=== PATIENT | female | born 2000 | race Caucasian/White ===

== ENCOUNTER 2019-03-23 07:25 | Outpatient (CLI) | payer OTHER ==
[2019-03-23 12:23] LABS: BHCG - Serum Negative (NEGATIVE); Pregs Control Background? CLEAR/WHITE (CLR/WHITE); Pregs Control Bar Appear? YES (CONTROL BAR)
== END 2019-03-23 07:26 | disposition home or self-care (01) ==
LOC: LABBT 07:25
PROVIDERS: ATTEND Orthopaedic Surgery
DX: Z01.812 Encounter for preprocedural laboratory examination (principal); S83.241A Other tear of medial meniscus, current injury, right knee, initial encounter
CPT/HCPCS: 84703

== ENCOUNTER 2019-03-28 07:09 | Day surgery (SDC) | payer OTHER ==
[2019-03-23 11:32] VITALS: BMI 20.6
--- NOTE | 2019-03-27 10:07 | HP ---
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 She has had persistent medial knee pain and sensation of catching despite rest, restriction activities and exercises in knee brace and anti-inflammatory medications. Pain is now worse with driving and prolonged ambulation is interfering with day-to-day activities. PAST MEDICAL HISTORY: The patient is otherwise in good health. She has used ibuprofen for current symptoms. She is otherwise in good health. There are no major medical problems. ALLERGIES: SHE HAS NO KNOWN ALLERGIES. FAMILY HISTORY: Otherwise unremarkable. SOCIAL HISTORY: Otherwise unremarkable. REVIEW OF SYSTEMS: Otherwise unremarkable. PHYSICAL EXAMINATION: GENERAL: Reveals a healthy female. There is mild generalized ligamentous laxity. HEENT: Unremarkable. NECK: Supple. CHEST: Clear. HEART: Regular rate and rhythm. ABDOMEN: Soft and nontender. PELVIC: Deferred. RECTAL: Deferred. BREASTS: Deferred. EXTREMITIES: Pertinent findings with the right knee. There is no swelling or effusion. There is normal alignment. Q-angle is 15 degrees bilaterally. There is some pain with patellar compression. There is tenderness along the medial joint line and pain with Georgiana's maneuver. Full range of motion. There is no definite instability. There is a very slight positive patellar apprehension sign. NEUROVASCULAR: Intact. Gait is normal. DIAGNOSTIC STUDIES: X-rays of the right knee are negative except for borderline patella carmella. MRI scan of the right knee reveals a possible small flap tear involving the anterior medial meniscus. IMPRESSION: Internal derangement of right knee, possible medial meniscal tear. PLAN: Arthroscopy of right knee with possible partial medial meniscectomy and/or debridement and shaving. The nature of the surgery, length of recovery, and potential complications such as infection, loss of motion, incomplete relief, neurovascular injury, thromboembolic phenomena, posttraumatic degenerative arthritis, recurrent tear, need for additional treatment, repeat surgery have been discussed in detail with the patient and her father. Job ID: [id number]
[2019-03-28] MEDS ORDERED: Bupivacaine HCl 0.5%/Epinephrine 1:200,000/PF 30 ml Vial ONE (08:19)
[2019-03-28] MEDS ORDERED: Fentanyl 100 MCG/2 ML VIAL ONE (08:22)
[2019-03-28] MEDS ORDERED: HYDROcodone/Acetaminophen 5/325 mg Tablet ONE (11:46)
[2019-03-28] MEDS ORDERED: Ondansetron PF 4 MG/2 ML Vial ONE (12:34)
[2019-03-28] MEDS ORDERED: Ketorolac Tromethamine 30 MG/ML VIAL ONE (12:34)
[2019-03-28] MEDS ORDERED: Dexamethasone 20 MG/5 ML VIAL ONE (12:34)
[2019-03-28] MEDS ORDERED: PROPOFOL 200 MG/20 ML VIAL ONE (12:34)
[2019-03-28] MEDS ORDERED: Lidocaine 1% PF 5 ML VIAL ONE (12:34)
--- NOTE | 2019-03-28 17:58 | OP ---
DATE OF PROCEDURE: 03/28/2019 ANESTHESIA: General. PREOPERATIVE DIAGNOSIS: Medial meniscal tear, right knee. POSTOPERATIVE DIAGNOSES: 1. Medial meniscal tear, right knee. 2. Small chondral defect of patella. PROCEDURES PERFORMED: Arthroscopy of right knee with partial medial meniscectomy and shaving of patella. OPERATIVE FINDINGS: Examination under anesthesia revealed the knee to be stable. On arthroscopy, there was a small possibly 5 x 5 mm partial thickness chondral defect on the central aspect of the patella, which appeared to be probably post-traumatic. There was good patellar tracking. There was a very small flap tear of the anterior horn of the medial meniscus and a very small flap tear of the posterior horn at the very root of the meniscus. The bulk of the meniscus was intact. The articular surface was intact. ACL was intact. Lateral compartment and lateral meniscus were normal. DESCRIPTION OF PROCEDURE: After satisfactory anesthesia was induced in the supine position, the patient was placed in a leg taylor, prepped and draped in routine manner. The right leg was elevated and exsanguinated with an Esmarch bandage and the tourniquet inflated to 250 mmHg. Bhavesh arthroscope was introduced through an anterolateral portal, probed through the anteromedial portal. Inflow and outflow accomplished through the scope using a Shippter arthroscopy pump. Arthroscopy was carried out and the above findings were noted. All findings were documented with video printer and hard copies were made. The anterior horn of the medial meniscus was shaved with a motorized shaver and the small flap tear posteriorly was also debrided with the basket forceps and motorized shaver. The small patellar chondral defect was smoothed with motorized shaver. The scope was then introduced in the anteromedial compartment and all compartments visualized. No additional pathology found. The knee was then copiously irrigated with the scope and all instruments were then withdrawn. A 20 mL of 0.5% Marcaine with epinephrine was instilled into the knee joint, additional 10 mL injected about the portal sites. Portal sites were closed with 3-0 nylon and a sterile bulky compressive dressing was applied. The tourniquet deflated after 24 minutes. The foot promptly pinked up and the patient was awakened, taken to recovery in stable condition. There were no apparent intraoperative complications. The estimated blood loss was negligible. The patient will be discharged home in satisfactory condition, instructed on ice elevation and with wound care instructions and home exercise program with Physical Therapy Department. She was given a prescription for [place] 5 for pain, 24 tablets. She will be rechecked in my office in approximately three weeks or sooner if there are any problems prior to that time. Job ID: [id number]
== END 2019-03-28 12:23 | disposition home or self-care (01) ==
LOC: SDC 07:09
PROVIDERS: ATTEND Orthopaedic Surgery
PROC: 0SBC4ZZ Excision of Right Knee Joint, Percutaneous Endoscopic Approach (ICD-10-PCS; principal; 2019-03-28)
DX: S83.241A Other tear of medial meniscus, current injury, right knee, initial encounter (principal); M94.8X8 Other specified disorders of cartilage, other site; Z79.899 Other long term (current) drug therapy; W19.XXXA Unspecified fall, initial encounter; Y93.23 Activity, snow (alpine) (downhill) skiing, snowboarding, sledding, tobogganing and snow tubing
CPT/HCPCS: J0670; J0690; J1100; J1885; J2001; J2405; J2704; J3010

== ENCOUNTER 2021-06-16 07:33 | Outpatient (CLI) | payer OTHER | END 2021-06-16 07:34 | disposition home or self-care (01) | LOC: ULT 07:33 | PROVIDERS: ATTEND Internal Medicine Gastroenterology | DX: R10.9 Unspecified abdominal pain (principal); K82.8 Other specified diseases of gallbladder | CPT/HCPCS: 76700 ==

== ENCOUNTER 2021-06-24 07:35 | Outpatient (CLI) | payer OTHER | END 2021-06-24 07:36 | disposition home or self-care (01) | LOC: NM 07:35 | PROVIDERS: ATTEND Internal Medicine Gastroenterology | DX: R10.9 Unspecified abdominal pain (principal) | CPT/HCPCS: 78227; A9537 ==